=== PATIENT | female | born 1995 | race Hispanic/Latino ===

== ENCOUNTER 2018-04-21 08:57 | Emergency (ER) | payer OTHER ==
[2018-04-21 09:57] LABS: Absolute Lymphocytes (CBC) 2.6 K/uL (0.7-4.9); Absolute Monocytes 0.5 K/uL (0.1-1.3); Absolute Neutrophil 4.6 K/uL (1.8-8.0); Basophils % 0.5 % (0-1.3); Eosinophils % 3.6 % (0-4.4); Hematocrit 41.1 % (36.0-45.0); Lymphocytes % 32.2 % (15.3-44.8); MCV 91.6 fL (80-100); MPV 9.5 fL (7.6-11.3); Monocytes % 6.5 % (3.3-12.3); RBC Red Blood Cell Count 4.49 M/uL (3.86-4.86)
[2018-04-21 10:04] LABS: ALT/SGPT 51 U/L (12-78); AST/SGOT 32 U/L (15-37); Alkaline Phosphatase 97 U/L (45-117); BUN Blood Urea Nitrogen 17 mg/dL (7-18); Bicarbonate 26 mmol/L (21-32); Bilirubin Direct < 0.1 mg/dL (0-0.2); Bilirubin Total 0.4 mg/dL (0.2-1.0); Glucose Level 97 mg/dL (74-106); Potassium 3.5 mmol/L (3.5-5.1); Protein, Total 7.9 g/dL (6.4-8.2); Sodium Level 139 mmol/L (136-145)
[2018-04-21 10:05] LABS: Albumin 3.9 g/dL (3.4-5.0); Amylase Level 61 U/L (25-115); Lipase 165 U/L (73-393)
--- NOTE | 2018-04-21 10:30 | ER ---
Nurse's Notes [facility] Name: Tara Walters Age: 22 yrs Sex: Female : 1995 Arrival Date: 04/21/2018 Time: 09:03 Bed 8 Private MD: Diagnosis: Generalized abdominal pain Presentation: 04/21 09:08 Presenting complaint: Patient states: generalized abd pain and mid back pain X 2 weeks. iw Transition of care: patient was not received from another setting of care. Onset of symptoms was April 08, 2018. Risk Assessment: Do you want to hurt yourself or someone else? Patient reports no desire to harm self or others. Initial Sepsis Screen: Does the patient meet any 2 criteria? No. Patient's initial sepsis screen is negative. Does the patient have a suspected source of infection? No. Patient's initial sepsis screen is negative. Care prior to arrival: None. 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 - Ebola Screening: : Patient negative for fever greater than or equal to 101.5 degrees Fahrenheit, and additional compatible Ebola Virus Disease symptoms Patient denies exposure to infectious person Patient denies travel to an Ebola-affected area in the 21 days before illness onset No symptoms or risks identified at this time. - Social history:: Smoking status: Patient/guardian denies using tobacco. Screenin:30 Abuse screen: Denies threats or abuse. Denies injuries from another. Nutritional ss screening: No deficits noted. Tuberculosis screening: Never had TB. Fall Risk None identified. Assessment: 09:30 General: Appears in no apparent distress. comfortable, Behavior is calm, cooperative, ss Denies fever, feeling ill, fatigue, chills. Pain: Complains of pain in lower abd, lower back Pain currently is 4 out of 10 on a pain scale. at worst was 7 out of 10 on a pain scale. Quality of pain is described as aching/ tight feeling, with episodic cramping Pain began 2 weeks ago Is continuous. Neuro: Level of Consciousness is awake, alert, obeys commands. Cardiovascular: Capillary refill < 3 seconds is brisk in bilateral fingers. Respiratory: Airway is patent Respiratory effort is even, unlabored, Denies cough, shortness of breath. GI: Abdomen is non-distended, Bowel sounds present X 4 quads. Abd is soft and non tender X 4 quads. Patient currently denies diarrhea, nausea, vomiting. : No signs and/or symptoms were reported regarding the genitourinary system. Denies burning with urination, urinary frequency, patient reports that she had one episode of burning with urination "the other day", but none since. EENT: Nares are clear. Derm: Skin is intact, is healthy with good turgor, Skin is pink, warm \\T\\ dry. normal. Musculoskeletal: Circulation, motion, and sensation intact. Range of motion: intact in all extremities, Swelling absent. 10:29 Reassessment: Patient appears in no apparent distress at this time. Patient and/or ss family updated on plan of care and expected duration. Pain level reassessed. Patient is alert, oriented x 3, equal unlabored respirations, skin warm/dry/pink. Vital Signs: 09:10 BP 152 / 90; Pulse 88; Resp 16; Temp 97.3; Pulse Ox 99% on R/A; iw 10:28 BP 114 / 62; Pulse 60; Resp 15; Pulse Ox 100% on R/A; Pain 2/10; ss ED Course: 09:03 Patient arrived in ED. rg4 09:04 Lizette Saravia FNP-C is [facility]. kb 09:04 Kirby Zabala MD is Attending Physician. kb 09:09 Triage completed. iw 09:10 Arm band placed on. iw 09:30 Patient has correct armband on for positive identification. Bed in low position. Call ss light in reach. Side rails up X 1. Pulse ox on. NIBP on. 09:30 Urine collected: clean catch specimen, clear. sg 09:30 Inserted saline lock: 20 gauge in right antecubital area, using aseptic technique. ss Blood collected. 10:29 No provider procedures requiring assistance completed. IV discontinued, intact, ss bleeding controlled, No redness/swelling at site. Pressure dressing applied. 10:36 Meka Núñez, RN is Primary Nurse. iw Administered Medications: No medications were administered Outcome: 10:29 Discharge ordered by . reji 10:35 Discharged to home ambulatory, with friend. ss 10:35 Condition: good 10:35 Discharge instructions given to patient, friend, Instructed on discharge instructions, follow up and referral plans. medication usage, Demonstrated understanding of instructions, follow-up care, medications. 10:36 Patient left the ED. iw Signatures: Lizette Saravia, DEPUTY CONTROLLER-C DEPUTY CONTROLLER-Ckb Silvino Jean Baptiste RN Meka Mayen RN RN iw Smirch, Shelby, RN RN Malia Brannon rg4
--- NOTE | 2018-04-21 10:30 | EDPHYS ---
Physician Documentation [facility] Name: Tara Walters Age: 22 yrs Sex: Female : 1995 Arrival Date: 04/21/2018 Time: 09:03 Bed 8 Private MD: ED Physician Kirby Zabala HPI: 04/21 09:58 This 22 yrs old Female presents to ER via Ambulatory with complaints of kb Abdominal Pain, Back Pain. 09:58 The patient presents with abdominal pain that is diffuse. Onset: The symptoms/episode kb began/occurred 2 week(s) ago. The symptoms radiate to both flanks. Associated signs and symptoms: none. The symptoms are described as constant. Modifying factors: The symptoms are alleviated by nothing, the symptoms are aggravated by nothing. Severity of pain: At its worst the pain was moderate in the emergency department the pain is unchanged. The patient has not experienced similar symptoms in the past. The patient has not recently seen a physician. Pt states she has had bilateral flank and diffuse abd pain for 2 weeks. States pain has been constant and unchanged. Came today because she has developed breast tenderness. Unsure if she is . . 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 - Ebola Screening: : Patient negative for fever greater than or equal to 101.5 degrees Fahrenheit, and additional compatible Ebola Virus Disease symptoms Patient denies exposure to infectious person Patient denies travel to an Ebola-affected area in the 21 days before illness onset No symptoms or risks identified at this time. - Social history:: Smoking status: Patient/guardian denies using tobacco. ROS: 09:58 Constitutional: Negative for fever, chills, and weight loss, Cardiovascular: Negative kb for chest pain, palpitations, and edema, Respiratory: Negative for shortness of breath, cough, wheezing, and pleuritic chest pain, Back: Negative for injury and pain, MS/Extremity: Negative for injury and deformity, Skin: Negative for injury, rash, and discoloration, Neuro: Negative for headache, weakness, numbness, tingling, and seizure. 09:58 Abdomen/GI: Positive for abdominal pain, Negative for nausea, vomiting, and diarrhea, constipation. 09:58 : Positive for flank pain. Exam: 09:58 Constitutional: This is a well developed, well nourished patient who is awake, alert, kb and in no acute distress. Head/Face: Normocephalic, atraumatic. Chest/axilla: Normal chest wall appearance and motion. Nontender with no deformity. No lesions are appreciated. Cardiovascular: Regular rate and rhythm with a normal S1 and S2. No gallops, murmurs, or rubs. Normal PMI, no JVD. No pulse deficits. Respiratory: Lungs have equal breath sounds bilaterally, clear to auscultation and percussion. No rales, rhonchi or wheezes noted. No increased work of breathing, no retractions or nasal flaring. Back: No spinal tenderness. No costovertebral tenderness. Full range of motion. Skin: Warm, dry with normal turgor. Normal color with no rashes, no lesions, and no evidence of cellulitis. MS/ Extremity: Pulses equal, no cyanosis. Neurovascular intact. Full, normal range of motion. Neuro: Awake and alert, GCS 15, oriented to person, place, time, and situation. Cranial nerves II-XII grossly intact. Motor strength 5/5 in all extremities. Sensory grossly intact. Cerebellar exam normal. Normal gait. 09:58 Abdomen/GI: Inspection: abdomen appears normal, Bowel sounds: normal, in all quadrants, Palpation: soft, in all quadrants, mild abdominal tenderness, in all quadrants. Vital Signs: 09:10 BP 152 / 90; Pulse 88; Resp 16; Temp 97.3; Pulse Ox 99% on R/A; iw 10:28 BP 114 / 62; Pulse 60; Resp 15; Pulse Ox 100% on R/A; Pain 2/10; ss MDM: 09:08 Patient medically screened. [facility] 10:01 Data reviewed: vital signs, nurses notes. Data interpreted: Pulse oximetry: on room air kb is 99 %. Interpretation: normal. 10:28 Counseling: I had a detailed discussion with the patient and/or guardian regarding: the kb historical points, exam findings, and any diagnostic results supporting the discharge/admit diagnosis, lab results, the need for outpatient follow up, an OB/Gyne specialist, to return to the emergency department if symptoms worsen or persist or if there are any questions or concerns that arise at home. 04/21 09:21 Order name: Amylase, Serum; Complete Time: 10:16 kb 04/21 09:21 Order name: Basic Metabolic Panel; Complete Time: 10:16 kb 04/21 09:21 Order name: CBC with Diff; Complete Time: 10:19 kb 04/21 09:21 Order name: Hepatic Function; Complete Time: 10:16 kb 04/21 09:21 Order name: Lipase; Complete Time: 10:16 kb 04/21 09:24 Order name: Urine Dipstick--Ancillary (enter results) bd 04/21 09:10 Order name: Urine Dipstick-Ancillary (obtain specimen); Complete Time: 09:18 kb 04/21 09:10 Order name: Urine Test (obtain specimen); Complete Time: 09:18 kb 04/21 09:21 Order name: IV Saline Lock; Complete Time: :28 kb 04/21 09:21 Order name: Labs collected and sent; Complete Time: :28 kb 04/21 09:24 Order name: Urine --Ancillary (enter results) bd Administered Medications: No medications were administered Disposition: 11:37 Co-signature as Attending Physician, Kirby Zabala MD I agree with the assessment and dl plan of care. Disposition: 04/21/18 10:29 Discharged to Home. Impression: Generalized abdominal pain. - Condition is Stable. - Discharge Instructions: Abdominal Pain, Adult, [id number]. - Medication Reconciliation Form, Thank You Letter, Antibiotic Education, Prescription Opioid Use, Work release form form. - Follow up: Emergency Department; When: As needed; Reason: Worsening of condition. Follow up: Private Physician; When: 2 - 3 days; Reason: Recheck today's complaints, Continuance of care, Re-evaluation by your physician. Signatures: Dispatcher [employer] Lizette Camacho, SHEEPSKIN PICKLER-C CRISTY-Kirby Wu MD MD cha Williams, Irene, Ciara Burns RN, RN RN ss Corrections: (The following items were deleted from the chart) 10:36 10:29 04/21/2018 10:29 Discharged to Home. Impression: Generalized abdominal pain. iw Condition is Stable. Forms are Medication Reconciliation Form, Thank You Letter, Antibiotic Education, Prescription Opioid Use. Follow up: Emergency Department; When: As needed; Reason: Worsening of condition. Follow up: Private Physician; When: 2 - 3 days; Reason: Recheck today's complaints, Continuance of care, Re-evaluation by your physician. kb
[2018-04-21 10:52] LABS: Urine Blood TRACE (NEG); Urine Glucose NEGATIVE (NEG); Urine Protein TRACE (NEG); Urine Specific Gravity 1.025 (1.005-1.030); Urine pH 6.5 (5.0-7.0)
== END 2018-04-21 10:36 | disposition home or self-care (01) ==
LOC: ER 08:57
DX: R10.84 Generalized abdominal pain (principal); Z88.0 Allergy status to penicillin
CPT/HCPCS: 36415; 80048; 80076; 81003; 81025; 82150; 83690; 85025; 99283

== ENCOUNTER 2018-09-05 17:31 | Emergency (ER) | payer OTHER ==
[2018-09-05 18:50] LABS: Urine Blood NEGATIVE (NEG); Urine Glucose NEGATIVE (NEG); Urine Protein NEGATIVE (NEG)
[2018-09-05] MEDS ORDERED: ONDANSETRON 4 MG/2 ML VIAL ONE (18:50)
[2018-09-05] MEDS ORDERED: NA CHLORIDE 0.9% 1,000 ML ONE (18:50)
[2018-09-05] MEDS ORDERED: MECLIZINE HCL 12.5 MG TAB ONE (18:50)
[2018-09-05 18:51] LABS: Absolute Monocytes 0.7 K/uL (0.1-1.3); Basophils % 0.4 % (0-1.3); Eosinophils % 0.6 % (0-4.4); Hematocrit 39.2 % (36.0-45.0); Lymphocytes % 22.6 % (15.3-44.8); MPV 8.8 fL (7.6-11.3); Monocytes % 7.6 % (3.3-12.3); RBC Red Blood Cell Count 4.26 M/uL (3.86-4.86)
[2018-09-05 19:04] LABS: Albumin 4.1 g/dL (3.4-5.0); Bilirubin Direct 0.2 mg/dL (0-0.2); Bilirubin Total 0.7 mg/dL (0.2-1.0); Potassium 3.2 mmol/L (3.5-5.1)
[2018-09-05] MEDS ORDERED: POTASSIUM CL SA 10 MEQ TAB PO ONE (19:35)
--- NOTE | 2018-09-05 19:45 | EDPHYS ---
Physician Documentation [facility] Name: Tara Walters Age: 23 yrs Sex: Female : 1995 Arrival Date: 09/05/2018 Time: 17:34 Bed 18 Private MD: None, None ED Physician Sylwia Artis HPI: 09/05 18:28 This 23 yrs old Female presents to ER via Ambulatory with complaints of jr8 Dizziness, Nausea/Vomiting, SHAKINESS. 18:28 The patient presents with dizziness, lightheadedness. Onset: The symptoms/episode jr8 began/occurred gradually, 2 day(s) ago. Modifying factors: The symptoms are alleviated by nothing, the symptoms are aggravated by movement of head, standing up, changing position. Associated signs and symptoms: Pertinent positives: nausea, vomiting. Severity of symptoms: At their worst the symptoms were moderate in the emergency department the symptoms have improved mildly. Patient's baseline: Neuro: alert and fully oriented, Motor: no deficits, Ambulation: walks without assistance, Speech: normal. The patient has not experienced similar symptoms in the past. The patient has not recently seen a physician. Historical: - Allergies: 17:35 PENICILLINS; sv - PMHx: 17:38 None; sv - PSHx: 17:35 None; sv - Immunization history:: Flu vaccine status is unknown. - Social history:: Smoking status: Patient/guardian denies using tobacco. - Ebola Screening: : No symptoms or risks identified at this time. ROS: 18:28 Eyes: Negative for injury, pain, redness, and discharge, ENT: Negative for injury, jr8 pain, and discharge, Neck: Negative for injury, pain, and swelling, Cardiovascular: Negative for chest pain, palpitations, and edema, Respiratory: Negative for shortness of breath, cough, wheezing, and pleuritic chest pain, Back: Negative for injury and pain, MS/Extremity: Negative for injury and deformity, Skin: Negative for injury, rash, and discoloration. 18:28 Abdomen/GI: Positive for nausea and vomiting, Negative for abdominal pain, diarrhea, constipation, abdominal cramps, abdominal distension, anorexia, dysphagia, hematemesis, black/tarry stool, rectal pain, rectal bleeding, bowel incontinence, flatulence. 18:28 Neuro: Positive for dizziness, tinnitus, of the right ear, Negative for altered mental status, gait disturbance, headache, hearing loss, loss of consciousness, numbness, seizure activity, speech changes, syncope, near syncope, tingling, tremor, visual changes, weakness. Exam: 18:28 Eyes: Pupils equal round and reactive to light, extra-ocular motions intact. Lids and jr8 lashes normal. Conjunctiva and sclera are non-icteric and not injected. Cornea within normal limits. Periorbital areas with no swelling, redness, or edema. ENT: Nares patent. No nasal discharge, no septal abnormalities noted. Tympanic membranes are normal and external auditory canals are clear. Oropharynx with no redness, swelling, or masses, exudates, or evidence of obstruction, uvula midline. Mucous membranes moist. Neck: Trachea midline, no thyromegaly or masses palpated, and no cervical lymphadenopathy. Supple, full range of motion without nuchal rigidity, or vertebral point tenderness. No Meningismus. Cardiovascular: Regular rate and rhythm with a normal S1 and S2. No gallops, murmurs, or rubs. Normal PMI, no JVD. No pulse deficits. Respiratory: Lungs have equal breath sounds bilaterally, clear to auscultation and percussion. No rales, rhonchi or wheezes noted. No increased work of breathing, no retractions or nasal flaring. Abdomen/GI: Soft, non-tender, with normal bowel sounds. No distension or tympany. No guarding or rebound. No evidence of tenderness throughout. Back: No spinal tenderness. No costovertebral tenderness. Full range of motion. Skin: Warm, dry with normal turgor. Normal color with no rashes, no lesions, and no evidence of cellulitis. MS/ Extremity: Pulses equal, no cyanosis. Neurovascular intact. Full, normal range of motion. Neuro: Awake and alert, GCS 15, oriented to person, place, time, and situation. Cranial nerves II-XII grossly intact. Motor strength 5/5 in all extremities. Sensory grossly intact. Cerebellar exam normal. Normal gait. Vital Signs: 17:38 BP 143 / 87; Pulse 77; Resp 18; Temp 98; Pulse Ox 100% ; Weight 69.4 kg; Height 5 ft. 1 sv in. (154.94 cm); Pain 0/10; 20:20 BP 128 / 74; Pulse 56; Resp 16; Pulse Ox 100% on R/A; lp1 17:38 Body Mass Index 28.91 (69.40 kg, 154.94 cm) sv MDM: 17:51 Patient medically screened. jr8 19:44 Data reviewed: vital signs, nurses notes, lab test result(s), and as a result, I will jr8 discharge patient. Data interpreted: Pulse oximetry: on room air is 100 %. Interpretation: normal. Counseling: I had a detailed discussion with the patient and/or guardian regarding: the historical points, exam findings, and any diagnostic results supporting the discharge/admit diagnosis, lab results, the need for outpatient follow up, a family practitioner, to return to the emergency department if symptoms worsen or persist or if there are any questions or concerns that arise at home. Response to treatment: the patient's symptoms have resolved after treatment, patient is well hydrated. 09/05 18:01 Order name: Urine Dipstick--Ancillary (enter results); Complete Time: 19:06 09/05 18:01 Order name: Urine --Ancillary (enter results); Complete Time: 19:06 09/05 18:24 Order name: Basic Metabolic Panel; Complete Time: 19:06 [facility] 09/05 18:24 Order name: CBC with Diff; Complete Time: 19:06 [facility] 09/05 18:24 Order name: Creatinine for Radiology; Complete Time: 19:06 [facility] 09/05 18:24 Order name: Hepatic Function; Complete Time: 19:06 [facility] 09/05 18:24 Order name: Lipase; Complete Time: 19:06 [facility] 09/05 18:24 Order name: IV Saline Lock; Complete Time: 18:48 [facility] 09/05 18:24 Order name: Labs collected and sent; Complete Time: 18:48 [facility] Administered Medications: 18:40 Drug: Zofran 4 mg Route: IVP; Site: right antecubital; ss 19:29 Follow up: Response: Nausea is decreased lp1 18:48 Drug: NS 0.9% 1000 ml Route: IV; Rate: 1000 ml; Site: right antecubital; ss 20:33 Follow up: IV Status: Completed infusion; IV Intake: 800ml lp1 18:48 Drug: Meclizine 25 mg Route: PO; ss 19:29 Follow up: Response: Marked relief of symptoms lp1 19:28 Drug: Potassium Chloride 20 mEq Route: PO; lp1 20:20 Follow up: Response: No adverse reaction lp1 Disposition: 09/05/18 19:44 Discharged to Home. Impression: Dizziness and giddiness, Nausea and vomiting. - Condition is Stable. - Discharge Instructions: Benign Positional Vertigo, Dizziness, Nausea and Vomiting, Adult. - Prescriptions for Meclizine 25 mg Oral Tablet - take 1 tablet by ORAL route every 8 hours As needed; 30 tablet. Zofran 4 mg Oral Tablet - take 1 tablet by ORAL route every 8 hours As needed; 20 tablet. - Work release form, Medication Reconciliation Form, Thank You Letter, Antibiotic Education, Prescription Opioid Use form. - Follow up: Private Physician; When: 2 - 3 days; Reason: Recheck today's complaints, Continuance of care, Re-evaluation by your physician. - Problem is new. - Symptoms have improved. Addendum: 09/17/2018 02:51 Co-signature as Attending Physician, Sylwia Artis MD. m a2 Signatures: Dispatcher [employer] EDJosephine Ontiveros RN RN Ciara Godinez RN RN ss Pena, Laura, RN RN lp1 Jersey Cason, PA PA jr8 Sylwia Artis MD MD la2 Corrections: (The following items were deleted from the chart) 09/05 20:34 19:44 09/05/2018 19:44 Discharged to Home. Impression: Dizziness and giddiness; Nausea lp1 and vomiting. Condition is Stable. Forms are Medication Reconciliation Form, Thank You Letter, Antibiotic Education, Prescription Opioid Use. Follow up: Private Physician; When: 2 - 3 days; Reason: Recheck today's complaints, Continuance of care, Re-evaluation by your physician. Problem is new. Symptoms have improved. jr8
--- NOTE | 2018-09-05 19:45 | ER ---
Nurse's Notes [facility] Name: Tara Walters Age: 23 yrs Sex: Female : 1995 Arrival Date: 09/05/2018 Time: 17:34 Bed 18 Private MD: None, None Diagnosis: Dizziness and giddiness;Nausea and vomiting Presentation: 09/05 17:36 Presenting complaint: Patient states: n/v/dizziness since . Transition of care: sv patient was not received from another setting of care. Onset of symptoms was September 03, 2018. Care prior to arrival: None. 17:36 Method Of Arrival: Ambulatory sv 17:36 Acuity: ALEXANDRE 3 sv 19:32 Risk Assessment: Do you want to hurt yourself or someone else? Patient reports no lp1 desire to harm self or others. Initial Sepsis Screen: Does the patient meet any 2 criteria? No. Patient's initial sepsis screen is negative. Does the patient have a suspected source of infection? No. Patient's initial sepsis screen is negative. Triage Assessment: 17:39 General: Appears in no apparent distress. uncomfortable, Behavior is calm, cooperative, sv appropriate for age. Neuro: Level of Consciousness is awake, alert, obeys commands, Oriented to person, place, time, situation, Moves all extremities. Full function Gait is steady. Respiratory: Respiratory effort is even, unlabored, Respiratory pattern is regular, symmetrical. GI: Reports intolerance of food, nausea, vomiting. Historical: - Allergies: 17:35 PENICILLINS; sv - PMHx: 17:38 None; sv - PSHx: 17:35 None; sv - Immunization history:: Flu vaccine status is unknown. - Social history:: Smoking status: Patient/guardian denies using tobacco. - Ebola Screening: : No symptoms or risks identified at this time. Screenin:58 Abuse screen: Denies threats or abuse. Denies injuries from another. Nutritional ss screening: No deficits noted. Tuberculosis screening: No symptoms or risk factors identified. Never had TB. Fall Risk None identified. Assessment: 17:59 General: Appears in no apparent distress. comfortable, Behavior is calm, cooperative, ss Reports feeling ill for 2-3 days, Denies fever. Pain: Denies pain. Neuro: Level of Consciousness is awake, alert, obeys commands, Oriented to person, place, time, situation. Neuro: Reports dizziness, since 2 days ago, is worse when repositioning/ moving head. Cardiovascular: Heart tones S1 S2 present. Respiratory: Airway is patent Respiratory effort is even, unlabored, Respiratory pattern is regular, symmetrical. GI: Reports nausea, vomiting, since 2 days ago. GI: Abdomen is non-distended, Abd is soft X 4 quads. : No signs and/or symptoms were reported regarding the genitourinary system. Denies burning with urination, urinary frequency. EENT: Nares are clear Oral mucosa is moist. Throat is clear. Derm: Skin is intact, is healthy with good turgor, Skin is pink, warm \T\ dry. normal. Musculoskeletal: Circulation, motion, and sensation intact. Range of motion: intact in all extremities, Swelling absent. 19:31 Reassessment: Patient is alert, oriented x 3, equal unlabored respirations, skin lp1 warm/dry/pink. Patient states no dizziness at this time Patient states feeling better. Patient states symptoms have improved. 19:53 Reassessment: Patient aware of pending discharge after IV fluids completed. lp1 Vital Signs: 17:38 BP 143 / 87; Pulse 77; Resp 18; Temp 98; Pulse Ox 100% ; Weight 69.4 kg; Height 5 ft. 1 sv in. (154.94 cm); Pain 0/10; 20:20 BP 128 / 74; Pulse 56; Resp 16; Pulse Ox 100% on R/A; lp1 17:38 Body Mass Index 28.91 (69.40 kg, 154.94 cm) sv ED Course: 17:34 Patient arrived in ED. sb2 17:34 None, None is Private Physician. sb2 17:38 Triage completed. sv 17:39 Arm band placed on. sv 17:51 Jersey Cason PA is PHCP. jr8 17:51 Sylwia Artis MD is Attending Physician. jr8 17:54 Ciara Godinez, REGINA is Primary Nurse. ss 17:58 Patient has correct armband on for positive identification. Placed in gown. Side rails ss up X 1. Pulse ox on. NIBP on. 20:20 No provider procedures requiring assistance completed. IV discontinued, 22g IV to R AC lp1 DC'd. Administered Medications: 18:40 Drug: Zofran 4 mg Route: IVP; Site: right antecubital; ss 19:29 Follow up: Response: Nausea is decreased lp1 18:48 Drug: NS 0.9% 1000 ml Route: IV; Rate: 1000 ml; Site: right antecubital; ss 20:33 Follow up: IV Status: Completed infusion; IV Intake: 800ml lp1 18:48 Drug: Meclizine 25 mg Route: PO; ss 19:29 Follow up: Response: Marked relief of symptoms lp1 19:28 Drug: Potassium Chloride 20 mEq Route: PO; lp1 20:20 Follow up: Response: No adverse reaction lp1 Intake: 20:33 IV: 800ml; Total: 800ml. lp1 Outcome: 19:44 Discharge ordered by . jr8 20:20 Discharged to home ambulatory, with friend. lp1 20:20 Condition: good 20:20 Discharge instructions given to patient, Instructed on discharge instructions, follow up and referral plans. medication usage, Demonstrated understanding of instructions, follow-up care, medications, Prescriptions given X 2. 20:20 Patient left the ED. lp1 Signatures: Josephine Costello RN REGINA Ciara Godinez RN RN ss Pena, Laura, RN RN lp1 Jersey Cason, SLIM PA jr8 Dariela Terry2 Corrections: (The following items were deleted from the chart) 20:35 20:33 Discharged to home ambulatory, with friend, lp1 lp1 20:35 20:33 Condition: good lp1 lp1 20:35 20:33 Discharge instructions given to patient, Instructed on discharge instructions, lp1 follow up and referral plans. medication usage, Demonstrated understanding of instructions, follow-up care, medications, Prescriptions given X 2, lp1 20:35 20:34 Patient left the ED. lp1 lp1
== END 2018-09-05 20:34 | disposition home or self-care (01) ==
LOC: ER 17:31
DX: R42 Dizziness and giddiness (principal); R11.2 Nausea with vomiting, unspecified
CPT/HCPCS: 36415; 80048; 80076; 81003; 81025; 83690; 85025; 96361; 96374; 99283; J2405; J7030

== ENCOUNTER 2020-12-21 18:22 | Emergency (ER) | payer OTHER, SELFPAY ==
--- NOTE | 2020-12-21 21:01 | RAD REPORT ---
EXAM DESCRIPTION: Val Pa And Lat (2 Views)12/21/2020 7:42 pm CLINICAL HISTORY: Cough COMPARISON: None FINDINGS: [id number] bilateral pulmonary opacities. Heart is normal size IMPRESSION: [id number] bilateral pulmonary opacities likely pneumonia
--- NOTE | 2020-12-21 21:20 | EDPHYS ---
Physician Documentation [facility] Name: Tara Walters Age: 25 yrs Sex: Female : 1995 Arrival Date: 12/21/2020 Time: 18:24 Bed 6 Private MD: ED Physician Drew Bautista HPI: 12/21 21:15 This 25 yrs old Female presents to ER via Ambulatory with complaints of jmm Shortness Of Breath, Covid +. 21:15 The patient has shortness of breath at rest. Onset: The symptoms/episode began/occurred jmm gradually, 1 week(s) ago. Duration: The symptoms are continuous, and are steadily getting worse. The patient's shortness of breath is aggravated by nothing. Associated signs and symptoms: Pertinent negatives: fever. This is a 25 year old female with a history of asthma that presents to the ED with complaints of cough, shortness of breath worsening over the past week. . ADMITTING CLERK: 21:20 lmp -unknown mg2 Historical: - Allergies: 18:47 PENICILLINS; ll1 - PMHx: 18:47 Asthma; ll1 - PSHx: 18:47 None; ll1 - Immunization history:: Client reports having NOT received the Covid vaccine. Flu vaccine is not up to date. - Social history:: Smoking status: Patient denies any tobacco usage or history of. Smoking status: Reported history of juuling and/or vaping. ROS: 21:15 Constitutional: Positive for body aches, chills. jmm 21:15 Cardiovascular: Negative for chest pain. 21:15 Respiratory: Positive for cough, shortness of breath. 21:15 All other systems are negative. Exam: 21:15 Constitutional: This is a well developed, well nourished patient who is awake, alert, jmm and in no acute distress. Head/Face: atraumatic. Eyes: EOMI, no conjunctival erythema appreciated ENT: Moist Mucus Membranes Neck: Trachea midline, Supple Chest/axilla: Normal chest wall appearance and motion. Cardiovascular: Regular rate and rhythm. No edema appreciated Respiratory: Normal respirations, no respiratory distress appreciated Abdomen/GI: Non distended, soft Back: Normal ROM Skin: General appearance color normal 21:15 Musculoskeletal/extremity: ROM: intact in all extremities. 21:15 Skin: Appearance: Color: normal in color. 21:15 Neuro: Orientation: is normal, Mentation: is normal, Memory: is normal. 21:15 Psych: Behavior/mood is pleasant, cooperative. Vital Signs: 18:45 BP 124 / 97; Pulse 88; Resp 20; Temp 98.5; Pulse Ox 99% ; Weight 86.18 kg; Height 5 ft. ll1 2 in. (157.48 cm); Pain 6/10; 21:30 BP 120 / 80; Pulse 80; Resp 18; Temp 98; Pulse Ox 100% on R/A; mg2 18:45 Body Mass Index 34.75 (86.18 kg, 157.48 cm) ll1 MDM: 21:13 Patient medically screened. arnel 21:17 Data reviewed: vital signs, nurses notes. Counseling: I had a detailed discussion with arnel the patient and/or guardian regarding: the historical points, exam findings, and any diagnostic results supporting the discharge/admit diagnosis, radiology results, the need for outpatient follow up, to return to the emergency department if symptoms worsen or persist or if there are any questions or concerns that arise at home. ED course: Patient is alert and non toxic in appearance. No signs of resp distress. patient is advised to return to the ED if symptoms worsen. patient understood and agrees with the plan of care. . 12/21 18:48 Order name: Chest Pa And Lat (2 Views) XRAY; Complete Time: 21:03 kb Administered Medications: 21:32 Drug: Decadron (dexamethasone) 10 mg Route: IM; Site: left deltoid; mg2 21:36 Follow up: Response: No adverse reaction; Medication administered at discharge. mg2 Disposition: 12/22 04:47 Co-signature as Attending Physician, Drew Bautista MD. rn Disposition: 12/21/20 21:19 Discharged to Home. Impression: Coronavirus infection, unspecified. - Condition is Stable. - Discharge Instructions: COVID-19. - Prescriptions for ivermectin 3 mg Oral tablet - take 6 tablet by ORAL route as directed 6 tabs by mouth now and 6 tabs by mouth on day 3; 12 tablet. Prednisone 20 mg Oral Tablet - take 3 tablet by ORAL route once daily for 5 days; 15 tablet. Zithromax Z- Stephen 250 mg Oral Tablet - take 1 tablet by ORAL route as directed for 5 days Day 1 - take two (2) tablets one time. Day 2, 3, 4 , 5 take one (1) tablet once daily.; 6 tablet. Albuterol Sulfate 90 mcg/actuation - inhale 1-2 puff by INHALATION route every 4-6 hours; 1 Inhaler. - Medication Reconciliation Form, Thank You Letter, Antibiotic Education, Prescription Opioid Use form. - Follow up: Private Physician; When: 2 - 3 days; Reason: Recheck today's complaints, Continuance of care, Re-evaluation by your physician. - Notes: Please take 10,000 Units of vitamin D a day Signatures: Dispatcher [employer] EDMS Lizette Saravia, CRISTY-C BARKING MACHINE FEEDER-Stephen Perez PA PA jmm Nieto, Roman, MD MD rn Julio Carroll RN RN mg2 Jesus Muro RN RN ll1 Corrections: (The following items were deleted from the chart) 12/21 21:37 21:19 12/21/2020 21:19 Discharged to Home. Impression: Coronavirus infection, mg2 unspecified. Condition is Stable. Forms are Medication Reconciliation Form, Thank You Letter, Antibiotic Education, Prescription Opioid Use. Follow up: Private Physician; When: 2 - 3 days; Reason: Recheck today's complaints, Continuance of care, Re-evaluation by your physician. arnel
--- NOTE | 2020-12-21 21:20 | ER ---
Nurse's Notes [facility] Name: Tara Walters Age: 25 yrs Sex: Female : 1995 Arrival Date: 12/21/2020 Time: 18:24 Bed 6 Private MD: Diagnosis: Coronavirus infection, unspecified Presentation: 12/21 18:45 Chief complaint: Patient states: Covid positive result for 1 week. SOB for 2 days. ll1 Lightheaded, dizzy, N/V/D, weak, fatigue for 2 days. No fever. Coronavirus screen: Client denies travel out of the [place] in the last 14 days. chills, congestion, cough unrelated to allergies, diarrhea, difficulty breathing, fatigue, headache, muscle pain, nausea, runny nose, shaking with chills, shortness of breath, loss of taste or smell, vomiting. Client presents with at least one sign or symptom that may indicate coronavirus-19. Standard/surgical mask placed on the client. Ebola Screen: Patient denies travel to an Ebola-affected area in the 21 days before illness onset. Initial Sepsis Screen: Does the patient meet any 2 criteria? No. Patient's initial sepsis screen is negative. Does the patient have a suspected source of infection? Yes: Productive cough/pneumonia. Risk Assessment: Do you want to hurt yourself or someone else? Patient reports no desire to harm self or others. Onset of symptoms was December 14, 2020. 18:45 Method Of Arrival: Ambulatory ll1 18:45 Acuity: ALEXANDRE 3 ll1 Triage Assessment: 21:20 General: Appears in no apparent distress. comfortable, Behavior is calm, cooperative. mg2 Respiratory: Reports shortness of breath at rest Onset: The symptoms/episode began/occurred gradually, the patient has mild shortness of breath. PSYCHOLOGIST EDUCATIONAL: 21:20 lmp -unknown mg2 Historical: - Allergies: 18:47 PENICILLINS; ll1 - PMHx: 18:47 Asthma; ll1 - PSHx: 18:47 None; ll1 - Immunization history:: Client reports having NOT received the Covid vaccine. Flu vaccine is not up to date. - Social history:: Smoking status: Patient denies any tobacco usage or history of. Smoking status: Reported history of juuling and/or vaping. Screenin:20 Abuse screen: Denies threats or abuse. Denies injuries from another. Nutritional mg2 screening: No deficits noted. Tuberculosis screening: No symptoms or risk factors identified. 21:20 Fall Risk None identified. mg2 Assessment: 21:30 General: Appears in no apparent distress. comfortable. Pain: Denies pain. Neuro: Level mg2 of Consciousness is awake, alert, obeys commands, Oriented to person, place, time, situation. Cardiovascular: Rhythm is regular. Respiratory: Airway is patent Respiratory effort is even, unlabored, Respiratory pattern is regular, symmetrical. GI: No signs and/or symptoms were reported involving the gastrointestinal system. : No signs and/or symptoms were reported regarding the genitourinary system. EENT: No signs and/or symptoms were reported regarding the EENT system. Derm: Skin is intact, is healthy with good turgor, Skin is pink, warm \T\ dry. normal. Musculoskeletal: Circulation, motion, and sensation intact. Capillary refill < 3 seconds. 21:30 Respiratory: Breath sounds are clear. mg2 Vital Signs: 18:45 BP 124 / 97; Pulse 88; Resp 20; Temp 98.5; Pulse Ox 99% ; Weight 86.18 kg; Height 5 ft. ll1 2 in. (157.48 cm); Pain 6/10; 21:30 BP 120 / 80; Pulse 80; Resp 18; Temp 98; Pulse Ox 100% on R/A; mg2 18:45 Body Mass Index 34.75 (86.18 kg, 157.48 cm) ll1 ED Course: 18:24 Patient arrived in ED. ds1 18:47 Triage completed. ll1 18:48 Arm band placed on. ll1 20:39 Chest Pa And Lat (2 Views) XRAY In Process Unspecified. EDMS 21:05 Stephen Georges PA is PHCP. jmm 21:05 Drew Bautista MD is Attending Physician. jmm 21:12 Julio Carroll, REGINA is Primary Nurse. mg2 21:20 Patient has correct armband on for positive identification. mg2 21:20 No provider procedures requiring assistance completed. mg2 21:20 Patient did not have IV access during this emergency room visit. mg2 Administered Medications: 21:32 Drug: Decadron (dexamethasone) 10 mg Route: IM; Site: left deltoid; mg2 21:36 Follow up: Response: No adverse reaction; Medication administered at discharge. mg2 Outcome: 21:19 Discharge ordered by MD. seals 21:36 Discharged to home ambulatory, with family. mg2 21:36 Condition: stable 21:36 Discharge instructions given to patient, family, Instructed on discharge instructions, follow up and referral plans. medication usage, Demonstrated understanding of instructions, follow-up care, medications, Prescriptions given X 4. 21:37 Patient left the ED. mg2 Signatures: Dispatcher [employer] EDMS Stephen Georges PA PA jmm Sanford, Demi ds1 Julio Carroll RN RN mg2 Jesus Muro RN RN ll1 Corrections: (The following items were deleted from the chart) 18:48 18:45 BP 124 / 97; Pulse 88bpm; Resp 17bpm; Pulse Ox 99%; Temp 98.5F; 86.18 kg; Height ll1 5 ft. 2 in.; BMI: 34.7; Pain 6/10; ll1
[2020-12-21 21:41] VITALS: BP 124/97; TEMP 98.5; O2SAT 99
[2020-12-21] MEDS ORDERED: dexAMETHasone 10 MG/ML VIAL ONE (21:44)
== END 2020-12-21 21:37 | disposition home or self-care (01) ==
LOC: ER 18:22
DX: U07.1 COVID-19 (principal); J45.909 Unspecified asthma, uncomplicated; Z88.0 Allergy status to penicillin
CPT/HCPCS: 71046; 96372; 99283; J1100

== ENCOUNTER 2023-08-18 09:27 | Emergency (ER) | payer SELFPAY ==
--- OUTSIDE RECORDS SUMMARY | 2023-08-18 09:33 | XMS REPORT | Continuity of Care Document ---
Author Name Unknown Address [address] [place] [address] [address] [id number] [facility] thconnect Address [address] [facility] [place] [address] Care Team Providers Care Script Developer Name Role Phone Oswaldo Attending Clinician Unavailable BERTHA NAZARIO Attending Clinician Unavailable SINCERE Attending Clinician Unavailable Oswaldo Admitting Clinician Unavailable SINCERE Admitting Clinician Unavailable Payers Payer Name Policy Type Policy Number Effective Date Expirati on Date Source Problems Condition Name Condition Details Condition Category Status Onset Date Resolution Date Last Treatment Date Treating Clinician Comments Source Uses oral contracept ion Uses Oral Contracept ion Problem Active 04-28 00:00: 00 [facility] Gynecologi c examinatio n Gynecologi c Examinatio n Problem Active 04-28 00:00: 00 [facility] Allergies, Adverse Reactions, Alerts Allergy Name Allergy Type Status Severity Reaction(s) Onset Date Inactive Date Treating Clinician Comments Source PENICILL INS Allergy to substanc e Active Mild to moderate Other [facility] Social History Smoking Status Start Date Stop Date Source Never Smoker [facility] Medications Ordered Medication Name Filled Medication Name Start Date Stop Date Current Medication? Ordering Clinician Indication Dosage Frequency Signature (SIG) Comments Components Source 09/27 () 1 mg-20 mcg (21)/75 mg (7) tablet Take 1 tablet every day by oral route. 09/27 () 1 mg-20 mcg (21)/75 mg (7) tablet Take 1 tablet every day by oral route. No 1 Q1D 09/27 () 1 mg-20 mcg (21)/75 mg (7) tablet Take 1 tablet every day by oral route. [facility] Vital Signs Vital Name Observation Time Observation Value Comments S ource BMI (Body Mass Index) 2023-06-13 00:00:00 35.1 kg/m2 [facility] BP Diastolic 2023-06-13 00:00:00 85 mm[Hg] [facility] BP Systolic 2023-06-13 00:00:00 137 mm[Hg] [facility] Body Weight 2023-06-13 00:00:00 185.9 [lb_av] [facility] Height 2023-06-13 00:00:00 61 [in_i] [facility] Plan of Care Planned Activity Planned Date Details Comments Source Diagnostic Test Pending 2023-06-13 00:00:00 urinalysis, dipstick [code = urinalysis, dipstick] [facility] Diagnostic Test Pending 2023-06-13 00:00:00 bacterial vaginosis panel, vaginal [code = bacterial vaginosis panel, vaginal] [facility] Diagnostic Test Pending 2023-06-13 00:00:00 test, urine [code = test, urine] [facility] Diagnostic Test Pending 2023-06-13 00:00:00 TSH, serum, reflex free T4 [code = TSH, serum, reflex free T4] [facility] Diagnostic Test Pending 2023-06-13 00:00:00 prolactin, serum [code = prolactin, serum] [facility] Diagnostic Test Pending 2023-06-13 00:00:00 estradiol, serum [code = estradiol, serum] [facility] Diagnostic Test Pending 2023-06-13 00:00:00 FSH (follicle-stimulatin g hormone), serum [code = FSH (follicle-stimulatin g hormone), serum] [facility] Diagnostic Test Pending 2023-06-13 00:00:00 testosterone, total, serum [code = testosterone, total, serum] [facility] Diagnostic Test Pending 2023-06-13 00:00:00 17-hydroxyprogestero ne, QN, serum [code = 17-hydroxyprogestero ne, QN, serum] [facility] Diagnostic Test Pending 2023-06-13 00:00:00 pap, LB + HPV [code = pap, LB + HPV] [facility] Diagnostic Test Pending 2023-06-13 00:00:00 trichomonas vaginalis DNA, PCR, unspecified specimen [code = trichomonas vaginalis DNA, PCR, unspecified specimen] [facility] Instructions [facility] Encounters Start Date/Time End Date/Time Encounter Type Admission Type Attending [facility] Facility Care Department Encounter ID Source 2023-07-24 00:00:00 2023-07-24 00:00:00 Outpatient G_Pappas [facility] [id number] [facility] 2023-06-19 08:11:00 2023-06-19 08:11:00 Outpatient BERTHA OLIVA [facility] [id number] [facility] 2023-06-19 00:00:00 2023-06-19 00:00:00 [place] [id number] [facility] 2023-06-13 00:00:00 2023-06-13 00:00:00 Outpatient G_Pappas [facility] [id number] [facility] 2023-06-13 00:00:00 2023-06-13 00:00:00 Bertha Nazario INTERN-BC: [address], [address], [place] [address] , Ph. [phone] [facility] [id number] [facility] 2023-06-12 00:00:00 2023-06-12 00:00:00 Outpatient G_Pappas [facility] [id number] [facility] 2020-09-29 11:33:00 2020-09-29 11:33:00 Outpatient LISTER_MELI [facility] [id number] [facility] 2020-09-25 02:45:00 2020-09-25 02:45:00 Outpatient LISTER_MELI [facility] [id number] [place] [facility] 2020-09-07 11:50:00 2020-09-07 11:50:00 Outpatient ROSA_AGAPITO [facility] [id number] [facility] Results Test Description Test Time Test Comments Results Result Co mments Source [facility] (dipstick) panel - [id number] 09:27:55* Test Item Value Reference Range Interpretation Comme nts Leukocytes (test code = Leukocytes) Negative Nitrite (test code = Nitrite) negative Urobilinogen (test code = Urobilinogen) .2 Protein (test code = Protein) Negative pH (test code = pH) 6.5 Blood (test code = Blood) Negative Specific Warren (test code = Specific Warren) 1.025 Ketone (test code = Ketone) Negative Bilirubin (test code = Bilirubin) Negative Glucose (test code = Glucose) Negative Appearance (test code = Appearance) Clear Color (test code = Color) Yellow [facility]
[2023-08-18 10:13] LABS: Specific Gravity 1.019 (1.005-1.030)
[2023-08-18] MEDS ORDERED: GABAPENTIN 300 MG CAP ONE (10:46)
[2023-08-18] MEDS ORDERED: dexAMETHasone 10 MG/ML VIAL ONE (10:46)
[2023-08-18] MEDS ORDERED: KETOROLAC 30 MG/ML INJ ONE (10:46)
--- NOTE | 2023-08-18 11:01 | RAD REPORT ---
EXAM DESCRIPTION: CT - Spine Lumbar Wo Con - 08/18/2023 10:29 am CLINICAL HISTORY: PAIN COMPARISON: No comparisons TECHNIQUE: Axial noncontrast CT imaging of the lumbar spine was performed with coronal and sagittal re-formatted images. All CT scans are performed using dose optimization technique as appropriate and may include automated exposure control or mA/KV adjustment according to patient size. FINDINGS: No acute lumbar spine fracture seen. No aggressive marrow pattern or malalignment. Paraspinal tissues are normal in thickness. No paraspinal abscess or hematoma seen. Intervertebral disc disease assessment is inherently limited by CT. Within these limitations, no high -grade canal or foraminal stenosis suspected. IMPRESSION: No acute abnormalities of the lumbar spine on CT. If there is concern for radiculopathy, lumbar spine MRI would provide improved sensitivity for evaluation of the neural structures.
--- NOTE | 2023-08-18 11:18 | ER ---
Nurse's Notes [facility] Name: Tara Walters Age: 27 yrs Sex: Female : 1995 Arrival Date: 08/18/2023 Time: 09:27 Bed 20 Private MD: Diagnosis: Low back pain Presentation: 08/18 09:34 Chief complaint: Low back pain that radiates to left thigh x months, became worse and hb started to hurt in right buttock yesterday. Coronavirus screen: At this time, the client does not indicate any symptoms associated with coronavirus-19. Ebola Screen: No symptoms or risks identified at this time. Initial Sepsis Screen: Does the patient meet any 2 criteria? No. Patient's initial sepsis screen is negative. Does the patient have a suspected source of infection? No. Patient's initial sepsis screen is negative. Risk Assessment: Do you want to hurt yourself or someone else? Patient reports no desire to harm self or others. Onset of symptoms is unknown. 09:34 Method Of Arrival: Ambulatory hb 09:34 Acuity: ALEXANDRE 3 hb Historical: - Allergies: 09:36 PENICILLINS; hb - PMHx: 09:36 Asthma; hb - Family history:: not pertinent. - Hospitalizations: : No recent hospitalization is reported. Screenin:45 [facility] ED Fall Risk Assessment (Adult) History of falling in the last 3 months, kc6 including since admission No falls in past 3 months (0 pts) Confusion or Disorientation No (0 pts) Intoxicated or Sedated No (0 pts) Impaired Gait No (0 pts) Mobility Assist Device Used No (0 pt) Altered Elimination No (0 pt) Score/Fall Risk Level 0 - 2 = Low Risk. Abuse screen: Denies threats or abuse. Denies injuries from another. Abuse screen:. Nutritional screening: No deficits noted. Tuberculosis screening: No symptoms or risk factors identified. Assessment: 09:45 General: Appears in no apparent distress. comfortable, well groomed, well developed, kc6 Behavior is calm, cooperative, appropriate for age. Pain: Complains of pain in back Pain does not radiate. Pain currently is 9 out of 10 on a pain scale. Neuro: Level of Consciousness is awake, alert, obeys commands, Oriented to person, place, time, situation, Appropriate for age. Cardiovascular: Capillary refill < 3 seconds. Respiratory: Airway is patent Trachea midline Respiratory effort is even, unlabored, Respiratory pattern is regular, symmetrical. GI: No signs and/or symptoms were reported involving the gastrointestinal system. : No signs and/or symptoms were reported regarding the genitourinary system. EENT: No signs and/or symptoms were reported regarding the EENT system. Derm: No signs and/or symptoms reported regarding the dermatologic system. Skin is intact, is healthy with good turgor, Skin is pink, warm \T\ dry. Musculoskeletal: No signs and/or symptoms reported regarding the musculoskeletal system. Circulation, motion, and sensation intact. Capillary refill < 3 seconds, Range of motion: intact in all extremities. 10:45 Reassessment: Patient appears in no apparent distress at this time. No changes from kc6 previously documented assessment. Patient and/or family updated on plan of care and expected duration. Pain level reassessed. Patient is alert, oriented x 3, equal unlabored respirations, skin warm/dry/pink. 11:25 Reassessment: Patient appears in no apparent distress at this time. No changes from kc6 previously documented assessment. Patient and/or family updated on plan of care and expected duration. Pain level reassessed. Patient is alert, oriented x 3, equal unlabored respirations, skin warm/dry/pink. Vital Signs: 09:34 BP 143 / 85; Pulse 79; Resp 16; Temp 97.3(TE); Pulse Ox 100% on R/A; Pain 8/10; hb 10:58 BP 104 / 58; Pulse 66; Resp 16 S; Pulse Ox 100% on R/A; kc6 11:28 BP 121 / 66; Pulse 67; Resp 16 S; Pulse Ox 99% on R/A; kc6 09:34 Pain Scale: Adult hb ED Course: 09:28 Patient arrived in ED. rg4 09:28 Drew Bautista MD is Attending Physician. rn 09:33 Andree Navas RN is Primary Nurse. kc6 09:35 Triage completed. hb 09:40 Radiology exam delayed due to test not completed at this time. sj 09:45 Patient maintains SpO2 saturation greater than 95% on room air. kc6 09:45 Patient has correct armband on for positive identification. Bed in low position. Call kc6 light in reach. Side rails up X 1. Adult w/ patient. Client placed on continuous cardiac and pulse oximetry monitoring. NIBP monitoring applied. 09:45 Arm band placed on. kc6 10:31 CT Lumbar Spine Wo Con In Process Unspecified. EDMS 10:41 Inserted saline lock: 20 gauge in right antecubital area, using aseptic technique. kc6 11:29 No provider procedures requiring assistance completed. IV discontinued, intact, kc6 bleeding controlled, No redness/swelling at site. Pressure dressing applied. Administered Medications: 10:41 Drug: Ketorolac IVP 30 mg IVP once Route: IVP; Site: right antecubital; kc6 11:03 Follow up: Response: No adverse reaction; Pain is decreased kc6 10:41 Drug: Gabapentin PO 300 mg PO once Route: PO; kc6 11:03 Follow up: Response: No adverse reaction kc6 10:41 Drug: Decadron - Dexamethasone IVP 10 mg IVP once Route: IVP; Site: right antecubital; kc6 11:03 Follow up: Response: No adverse reaction kc6 Medication: 11:29 VIS not applicable for this client. kc6 Outcome: 11:18 Discharge ordered by . rn 11:29 Discharged to home ambulatory, with significant other, kc6 11:29 Condition: improved 11:29 Discharge instructions given to patient, Instructed on discharge instructions, follow up and referral plans. medication usage, Demonstrated understanding of instructions, follow-up care, medications, Prescriptions given X 2, 11:29 Patient left the ED. kc6 Signatures: Dispatcher [employer] Rylie Schultz Roman, MD MD rn Baxter, Heather, RN RN hb Garcia, Rubi [facility] Andree Navas RN RN kc6
--- NOTE | 2023-08-18 11:18 | EDPHYS ---
Physician Documentation [facility] Name: Tara Walters Age: 27 yrs Sex: Female : 1995 Arrival Date: 08/18/2023 Time: 09:27 Bed 20 Private MD: ED Physician Drew Bautista HPI: 08/18 09:41 This 27 yrs old Female presents to ER via Ambulatory with complaints of Low rn Back Pain. 09:41 The symptoms are located in the low back. The pain radiates to the left leg. Onset: The rn symptoms/episode began/occurred Patient reports months ago but not clear as to exactly when. Modifying factors: The patient symptoms are alleviated by remaining still, rest, the patient symptoms are aggravated by any movement. Associated signs and symptoms: Pertinent negatives: abdominal pain, fever, hematuria, incontinence, nausea, numbness, tingling, urinary retention, weakness. Severity of symptoms: At their worst the symptoms were moderate, in the emergency department the symptoms are unchanged. The patient has experienced similar episodes in the past. Patient reports months of low back pain, seen by PCP and diagnosed with sciatica. No images obtained. Patient reports pain not getting better. Radiates down the left leg. No weakness or numbness. No trauma. No urinary symptoms. No bowel or bladder problems.. Historical: - Allergies: 09:36 PENICILLINS; hb - PMHx: 09:36 Asthma; hb - Family history:: not pertinent. - Hospitalizations: : No recent hospitalization is reported. ROS: 09:41 Constitutional: Negative for fever, chills, and weight loss, Cardiovascular: Negative rn for chest pain, palpitations, and edema, Respiratory: Negative for shortness of breath, cough, wheezing, and pleuritic chest pain, Abdomen/GI: Negative for abdominal pain, nausea, vomiting, diarrhea, and constipation, Back: Positive for low back pain MS/Extremity: Negative for injury and deformity, Skin: Negative for injury, rash, and discoloration, Neuro: Negative for headache, weakness, numbness, tingling, and seizure, Exam: 09:41 Constitutional: This is a well developed, well nourished patient who is awake, alert, rn appears in pain but able to ambulate to room without difficulty or assistance Cardiovascular: Regular rate and rhythm. No pulse deficits. Back: No midline spinal tenderness. No swelling Skin: Warm, dry MS/ Extremity: Pulses equal, no cyanosis. Neurovascular intact. Full, normal range of motion. Equal circumference. Neuro: Awake and alert, GCS 15, antalgic gait. Vital Signs: 09:34 BP 143 / 85; Pulse 79; Resp 16; Temp 97.3(TE); Pulse Ox 100% on R/A; Pain 8/10; hb 10:58 BP 104 / 58; Pulse 66; Resp 16 S; Pulse Ox 100% on R/A; kc6 11:28 BP 121 / 66; Pulse 67; Resp 16 S; Pulse Ox 99% on R/A; kc6 09:34 Pain Scale: Adult hb MDM: 09:28 Patient medically screened. rn 11:17 Differential diagnosis: arthritis, sciatica, Herniated disc. Data reviewed: vital rn signs, nurses notes, radiologic studies, CT scan, and as a result, I will discharge patient. Counseling: I had a detailed discussion with the patient and/or guardian regarding the historical points, exam findings, and any diagnostic results supporting the discharge/admit diagnosis, lab results, radiology results, the need for outpatient follow up, to return to the emergency department if symptoms worsen or persist or if there are any questions or concerns that arise at home. Response to treatment: the patient's symptoms have mildly improved after treatment, and as a result, I will discharge patient. Special discussion: I discussed with the patient/guardian in detail that at this point there is no indication for admission to the hospital. It is understood, however, that if the symptoms persist or worsen the patient needs to return immediately for re-evaluation. 08/18 09:38 Order name: Test, Urine; Complete Time: 10:25 rn 08/18 09:38 Order name: CT Lumbar Spine Wo Con; Complete Time: 11:03 rn 08/18 10:33 Order name: IV Start; Complete Time: 10:41 rn Administered Medications: 10:41 Drug: Ketorolac IVP 30 mg IVP once Route: IVP; Site: right antecubital; kc6 11:03 Follow up: Response: No adverse reaction; Pain is decreased kc6 10:41 Drug: Gabapentin PO 300 mg PO once Route: PO; kc6 11:03 Follow up: Response: No adverse reaction kc6 10:41 Drug: Decadron - Dexamethasone IVP 10 mg IVP once Route: IVP; Site: right antecubital; kc6 11:03 Follow up: Response: No adverse reaction kc6 Disposition Summary: 08/18/23 11:18 Discharge Ordered Notes: Location: Home rn Problem: an ongoing problem rn Symptoms: have improved rn Condition: Stable rn Diagnosis - Low back pain rn Followup: rn - With: Private Physician - When: As needed - Reason: Recheck today's complaints, Re-evaluation by your physician Discharge Instructions: - Discharge Summary Sheet rn - Acute Back Pain, Adult rn - Lumbosacral Radiculopathy rn - Musculoskeletal Pain rn Forms: - Medication Reconciliation Form rn - Thank You Letter rn - Antibiotic editor trade journal - Prescription Opioid Use rn - Patient Portal Instructions rn - Leadership Thank You Letter rn - Work release form kc6 Prescriptions: - gabapentin 300 mg Oral capsule - take 1 capsule ORAL route every 12 hours for 7 days; 14 capsule; Refills: 0, rn Product Selection Permitted - Medrol (Stephen) 4 mg Oral Tablets, Dose Pack - take 1 tablet ORAL route as directed - follow package instructions; 1 packet; rn Refills: 0, Product Selection Permitted Signatures: Dispatcher [employer] Drew Vaughan MD MD rn Baxter, Heather, RN RN hb Campbell, Kaitlyn, RN RN kc6
[2023-08-18 12:03] VITALS: BP 104/58; O2SAT 100
== END 2023-08-18 11:29 | disposition home or self-care (01) ==
LOC: ER 09:27
DX: M54.50 Low back pain, unspecified (principal)
CPT/HCPCS: 72131; 81025; 96374; 96375; 99285; J1100